=== PATIENT | female | born 1990 | race Caucasian/White ===

== ENCOUNTER 2022-12-06 22:16 | Emergency (ER) | payer OTHER ==
[~2022-12-06] VITALS: Ht 160 cm; Wt 78.5 kg
[2022-12-06] MEDS ORDERED: KETOROLAC TROMETHAMINE INJ 30 MG/ML VIAL ONE (23:11)
--- NOTE | 2022-12-06 23:16 | NUR ---
URINE COLLECTED AND SENT TO LAB
--- NOTE | 2022-12-06 23:28 | NUR ---
[facility] AT BEDSIDE
[2022-12-06] MEDS ORDERED: KETOROLAC TROMETHAMINE INJ 60 MG/2 ML VIAL IM ONE (23:30)
[2022-12-06] MEDS ORDERED: TDAP [DIPH/PERTUSSIS/TET] 0.5 ML VIAL IM ONE (23:30)
[2022-12-07] MEDS ORDERED: TDAP [DIPH/PERTUSSIS/TET] 0.5 ML VIAL IM ONE (00:28)
[2022-12-07 00:48] VITALS: BP 138/80
[2022-12-07] MEDS ORDERED: LIDO30AD10 TP (00:53)
[2022-12-07] MEDS ORDERED: IBUP-1953 PO (00:53)
== END 2022-12-07 01:00 | disposition home or self-care (01) ==
LOC: ER 22:20
DX: S50.12XA Contusion of left forearm, initial encounter (principal); S20.212A Contusion of left front wall of thorax, initial encounter; S00.01XA Abrasion of scalp, initial encounter; Z79.899 Other long term (current) drug therapy; Y08.89XA Assault by other specified means, initial encounter; Y93.89 Activity, other specified; Y92.89 Other specified places as the place of occurrence of the external cause; Y99.8 Other external cause status
CPT/HCPCS: 99284; 96372; 73070; 73090; 73060; 71100; 84703; 90471; 90715; J1885

== ENCOUNTER 2024-02-23 20:25 | Emergency (ER) | payer OTHER ==
[~2024-02-23] VITALS: Ht 160 cm; Wt 59.0 kg
[2024-02-23 20:35] VITALS: TEMP 98.1
[2024-02-23] MEDS ORDERED: HYDROCODONE/APAP 5/325MG TABLET ONE (20:54)
[2024-02-23] MEDS ORDERED: TDAP [DIPH/PERTUSSIS/TET] 0.5 ML VIAL IM ONE (20:54)
[2024-02-23] MEDS: HYDROCODONE/APAP 5/325MG TABLET PO ONE (20:58)
[2024-02-23] MEDS: TDAP [DIPH/PERTUSSIS/TET] 0.5 ML VIAL IM ONE (20:59)
[2024-02-23 21:21] LABS: PREGNANCY TEST URINE QUAL NEGATIVE (NEGATIVE)
[2024-02-23] MEDS ORDERED: IBUP-1955 PO (21:36)
[2024-02-23] MEDS ORDERED: ACET-2605 PO (21:36)
[2024-02-23 21:51] VITALS: BP 118/78; O2SAT 98
== END 2024-02-23 21:53 | disposition home or self-care (01) ==
LOC: ER 20:34
DX: S00.81XA Abrasion of other part of head, initial encounter (principal); W22.8XXA Striking against or struck by other objects, initial encounter; Y93.89 Activity, other specified; Y92.89 Other specified places as the place of occurrence of the external cause; Y99.8 Other external cause status
CPT/HCPCS: 84703-TC; 90715

== ENCOUNTER 2024-05-31 16:12 | Emergency (ER) | payer OTHER ==
[~2024-05-31 16:12] MED LIST: ACET-2605 PO; IBUP-1955 PO
== END 2024-05-31 16:57 | disposition left against medical advice (07) ==
LOC: ER 16:17
DX: R07.9 Chest pain, unspecified (principal); Z53.21 Procedure and treatment not carried out due to patient leaving prior to being seen by health care provider